=== PATIENT | female | born 1970 | race African-American/Black ===

== ENCOUNTER 2019-01-27 23:32 | Emergency (ER) | payer MEDICAID ==
[~2019-01-27] VITALS: Ht 167.6 cm; Wt 129.0 kg
[2019-01-28] MEDS ORDERED: NITROGLYCERIN 0.4MG TABLET SL SL PRN (00:15)
[2019-01-28] MEDS ORDERED: ASPIRIN 81MG TABLET PO ONE (00:15)
[2019-01-28 01:05] LABS: EOSINOPHILS % 3.4 % (0.0-5.0); HEMATOCRIT. 37.5 % (36.0-48.0); HEMOGLOBIN. 12.3 g/dL (12.0-16.0); LYMPHOCYTES % 35.7 % (20.0-50.0); MEAN CORPUSCULAR HEMOGLOBIN 28.5 pg (28.0-32.0); MEAN CORPUSCULAR VOLUME 87.2 fL (81.0-99.0); MEAN PLATELET VOLUME 8.6 fl (7.4-10.4); MONOCYTES % 6.8 % (2.0-8.0); NEUTROPHILS % 53.1 % (40.0-76.0); PLATELET 286 x1000/uL (130-400); RED BLOOD CELL COUNT 4.31 mill/uL (4.2-5.4); RED CELL DISTRIBUTION WIDTH 14.7 % (11.6-14.6)
[2019-01-28 01:11] LABS: CHLORIDE 104 mEq/L (98-107)
[2019-01-28 03:58] VITALS: BP 149/99
== END 2019-01-28 04:25 | disposition home or self-care (01) ==
LOC: ER 23:32
DX: R07.89 Other chest pain (principal); E11.9 Type 2 diabetes mellitus without complications; E66.01 Morbid (severe) obesity due to excess calories; Z98.51 Tubal ligation status; Z68.42 Body mass index [BMI] 45.0-49.9, adult
CPT/HCPCS: 36415; 71045; 80053; 83880; 84484; 85025; 93005; 99284; Z7610